=== PATIENT | male | born 1945 | race Caucasian/White ===

== ENCOUNTER 2021-10-26 20:26 | Inpatient (IN) ==
[2021-10-26 21:03] LABS: Basophils # 0.1 10*3/uL (0.0-0.2); Basophils % 0.4 % (0.0-0.8); Eosinophils # 0.1 10*3/uL (0.0-0.87); Eosinophils % 0.3 % (0.00-10.9); Hematocrit 38.3 VOL% (42.0-52.0); Hemoglobin 12.8 GM/DL (14.0-18.0); Immature Granulocytes % 0.4 %; Immature Granulocytes Absolute 0.07 #; Lymphocytes # 0.8 10*3/uL (1.4-4.0); Lymphocytes % 4.9 % (21.2-54.2); Mean Corpuscular HGB Conc 33.4 GM/DL (32-36); Mean Corpuscular Volume 91.4 FL (87-102); Mean Platelet Volume 10.6 FL (9.6-12.0); Monocytes % 5.4 % (1.7-12.7); Neutrophils % 88.6 % (38.7-73.9); Platelet Count 222 T/CUMM (130-400); Red Blood Count 4.19 MC/CUMM (3.8-5.5); Red Cell Distribution Width 13.1 % (9.3-17.3); White Blood Count 15.8 T/CUMM (4-12)
[2021-10-26 21:24] LABS: Elliptocytes Few; Hypochromia Slight; Lymphocytes 5 % (20-55); Platelet Estimate Adequate; Segmented Neutrophils 89 % (50-85); Total Cells Counted 100
[2021-10-26 21:26] LABS: Alanine Aminotransferase 29 U/L (16-61); Albumin 3.5 G/DL (3.4-5.0); Alkaline Phosphatase 56 U/L (45-117); Aspartate Amino Transferase 19 U/L (0-37); Bilirubin,Total < 0.39 MG/DL (0.20-1.00); Blood Urea Nitrogen 20 MG/DL (7-18); Calcium 8.6 MG/DL (8.5-10.1); Carbon Dioxide 23 MMOL/L (21-32); Estimated Glom Filtration Rate 109 ML/MIN; Glucose 189 MG/DL (74-106); Osmolality,Calculated 277.1 MOS/KG (273-304); Potassium 4.2 MMOL/L (3.5-5.1); Sodium 135 MMOL/L (136-145); Total Protein 7.3 G/DL (6.4-8.2)
[2021-10-26] MEDS ORDERED: SODIUM CHLORIDE 0.9% 1,000 ML IV STA (21:38)
[2021-10-26] MEDS ORDERED: SODIUM CHLORIDE 0.9% 3,000 ML IV STA (21:38)
[2021-10-26 22:11] LABS: Calcium Oxalate Crystals,Urine Occasional /HPF (Few); Glucose,Urine (UA) Negative (Negative); Hyaline Casts,Urine 2 /LPF (0-3); Ketones,Urine Negative (Negative); Mucus,Urine Few /LPF (Occasional); Protein,Urine Trace mg/dL (Negative); RBC,Urine 1 /HPF (0-4); Squamous Epithelial Cell,Urine Occasional /HPF (0-10); Urine Appearance Clear (Clear); Urine Color Yellow (Yellow); Urine Specific Gravity >= 1.030 (1.001-1.035); Urine pH 5.5 (4.5-8.0)
[2021-10-26 22:12] LABS: Bilirubin,Urine Negative (Negative); Blood, Urine Negative (Negative); Nitrite,Urine Negative (Negative); Urine Urobilinogen 0.2 eU/dL (<2.0)
[2021-10-26] MEDS ORDERED: PIPERACILLIN/TAZOBACTAM 3,375 MG in SODIUM CHLORIDE 0.9% 100 ML IV STA (22:19)
[2021-10-26] MEDS ORDERED: GLUCAGON 1 MG VIAL IM PRN (23:43)
[2021-10-26] MEDS ORDERED: ONDANSETRON 4 MG/2 ML VIAL IV PRN (23:43)
[2021-10-26] MEDS ORDERED: DEXTROSE 10% 250 ML BAG IV PRN (23:43)
[2021-10-27] MEDS: SODIUM CHLORIDE 0.9% 1,000 ML IV SCH ×2 (00:55→21:38)
[2021-10-27] MEDS: VANCOMYCIN INJ 1,500 MG in SODIUM CHLORIDE 0.9% 500 ML IV SCH ×2 (05:00→21:37)
[2021-10-27 07:07] LABS: Basophils # 0.1 10*3/uL (0.0-0.2); Basophils % 0.4 % (0.0-0.8); Eosinophils # 0.1 10*3/uL (0.0-0.87); Eosinophils % 0.8 % (0.00-10.9); Hematocrit 35.8 VOL% (42.0-52.0); Hemoglobin 11.9 GM/DL (14.0-18.0); Immature Granulocytes % 0.6 %; Lymphocytes # 1.4 10*3/uL (1.4-4.0); Lymphocytes % 8.4 % (21.2-54.2); Mean Corpuscular HGB Conc 33.2 GM/DL (32-36); Mean Corpuscular Volume 90.2 FL (87-102); Mean Platelet Volume 10.7 FL (9.6-12.0); Monocytes % 5.8 % (1.7-12.7); Platelet Count 213 T/CUMM (130-400); Red Blood Count 3.97 MC/CUMM (3.8-5.5); Red Cell Distribution Width 13.1 % (9.3-17.3)
[2021-10-27 07:17] LABS: PT Patient Result 11.1 SECS (10.5-12.0); Partial Thromboplastin Time 27.8 SECS (23.8-32.1)
[2021-10-27 07:31] LABS: Calcium 8.5 MG/DL (8.5-10.1); Osmolality,Calculated 276.7 MOS/KG (273-304); Potassium 3.7 MMOL/L (3.5-5.1)
[2021-10-27 07:39] LABS: Band Neutrophils 6 % (0-10); Eosinophils 4 % (0-10); Lymphocytes 11 % (20-55); Segmented Neutrophils 74 % (50-85); Total Cells Counted 100
[2021-10-27 07:40] LABS: Hypochromia Slight; Microcytosis Slight; Platelet Estimate Normal
[2021-10-27] MEDS: INSULIN REGULAR 100 UNIT/ML SUBCUT SCH ×4 (08:43→21:42)
[2021-10-27] MEDS: PANTOPRAZOLE 40 MG TABLET PO SCH (08:44)
[2021-10-27] MEDS: PIPERACILLIN/TAZOBACTAM 3,375 MG in SODIUM CHLORIDE 0.9% 100 ML IV SCH ×2 (08:44→16:40)
[2021-10-27] MEDS: DOCUSATE SODIUM 100 MG CAPSULE PO SCH ×2 (08:45→21:36)
[2021-10-27] MEDS ORDERED: MAGNESIUM SULF RIDER 2 GM/50 ML PREMIX IV ONE (13:00)
[2021-10-27] MEDS: CITALOPRAM 20 MG TABLET PO SCH (14:26)
[2021-10-27] MEDS: ASCORBIC ACID 500 MG TABLET PO SCH (21:36)
[2021-10-27] MEDS: ACETAMINOPHEN 325 MG TABLET PO SCH (21:36)
[2021-10-27] MEDS: MELATONIN 3 MG TABLET PO PRN (21:37)
[2021-10-27] MEDS: amLODIPine 10 MG TABLET PO SCH (21:45)
[2021-10-28] MEDS: PIPERACILLIN/TAZOBACTAM 3,375 MG in SODIUM CHLORIDE 0.9% 100 ML IV SCH ×3 (00:23→15:24)
[2021-10-28] MEDS: SODIUM CHLORIDE 0.9% 1,000 ML IV SCH ×2 (05:49→14:02)
[2021-10-28 05:56] LABS: Basophils # 0.1 10*3/uL (0.0-0.2); Basophils % 0.6 % (0.0-0.8); Eosinophils # 0.4 10*3/uL (0.0-0.87); Eosinophils % 4.9 % (0.00-10.9); Hematocrit 33.8 VOL% (42.0-52.0); Hemoglobin 11.2 GM/DL (14.0-18.0); Immature Granulocytes % 0.4 %; Immature Granulocytes Absolute 0.03 #; Lymphocytes # 1.3 10*3/uL (1.4-4.0); Lymphocytes % 16.2 % (21.2-54.2); Mean Corpuscular HGB Conc 33.1 GM/DL (32-36); Mean Corpuscular Volume 91.6 FL (87-102); Mean Platelet Volume 10.8 FL (9.6-12.0); Monocytes % 10.1 % (1.7-12.7); Neutrophils % 67.8 % (38.7-73.9); Platelet Count 185 T/CUMM (130-400); Red Blood Count 3.69 MC/CUMM (3.8-5.5); Red Cell Distribution Width 13.1 % (9.3-17.3); White Blood Count 8.1 T/CUMM (4-12)
[2021-10-28 06:11] LABS: Calcium 8.3 MG/DL (8.5-10.1); Osmolality,Calculated 281.3 MOS/KG (273-304); Potassium 3.8 MMOL/L (3.5-5.1)
[2021-10-28] MEDS ORDERED: lisinopriL 20 MG TABLET PO SCH (09:00)
[2021-10-28] MEDS: allopurinoL 100 MG TABLET PO SCH (09:02)
[2021-10-28] MEDS: PANTOPRAZOLE 40 MG TABLET PO SCH (09:03)
[2021-10-28] MEDS: DOCUSATE SODIUM 100 MG CAPSULE PO SCH ×2 (09:03→21:24)
[2021-10-28] MEDS: CHOLECALCIFEROL 1,000 UNIT TABLET PO SCH (09:03)
[2021-10-28] MEDS: CITALOPRAM 20 MG TABLET PO SCH (09:04)
[2021-10-28] MEDS: INSULIN REGULAR 100 UNIT/ML SUBCUT SCH ×4 (09:06→21:24)
[2021-10-28] MEDS: guaiFENesin/DM ER 600-30 MG TABLET PO SCH ×2 (11:01→21:23)
[2021-10-28] MEDS: BENZONATATE 100 MG CAPSULE PO SCH ×2 (15:24→21:23)
[2021-10-28] MEDS: AZITHROMYCIN 250 MG TABLET PO SCH (15:24)
[2021-10-28] MEDS: VANCOMYCIN INJ 1,500 MG in SODIUM CHLORIDE 0.9% 500 ML IV SCH (15:25)
[2021-10-28] MEDS ORDERED: DOXYCYCLINE HYCLATE 100 MG CAPSULE PO SCH (21:00)
[2021-10-28] MEDS: MELATONIN 3 MG TABLET PO PRN (21:23)
[2021-10-28] MEDS: amLODIPine 10 MG TABLET PO SCH (21:23)
[2021-10-28] MEDS: ACETAMINOPHEN 325 MG TABLET PO SCH (21:23)
[2021-10-28] MEDS: ASCORBIC ACID 500 MG TABLET PO SCH (21:23)
[2021-10-29] MEDS: PIPERACILLIN/TAZOBACTAM 3,375 MG in SODIUM CHLORIDE 0.9% 100 ML IV SCH ×4 (00:30→23:56)
[2021-10-29 05:23] LABS: Basophils # 0.1 10*3/uL (0.0-0.2); Basophils % 0.7 % (0.0-0.8); Eosinophils # 0.4 10*3/uL (0.0-0.87); Eosinophils % 5.1 % (0.00-10.9); Hematocrit 32.6 VOL% (42.0-52.0); Hemoglobin 11.1 GM/DL (14.0-18.0); Immature Granulocytes % 0.4 %; Immature Granulocytes Absolute 0.03 #; Lymphocytes # 1.5 10*3/uL (1.4-4.0); Lymphocytes % 19.2 % (21.2-54.2); Mean Corpuscular Volume 90.8 FL (87-102); Mean Platelet Volume 10.9 FL (9.6-12.0); Monocytes % 9.1 % (1.7-12.7); Neutrophils % 65.5 % (38.7-73.9); Platelet Count 189 T/CUMM (130-400); Red Blood Count 3.59 MC/CUMM (3.8-5.5); Red Cell Distribution Width 12.9 % (9.3-17.3); White Blood Count 7.6 T/CUMM (4-12)
[2021-10-29 05:49] LABS: Calcium 7.9 MG/DL (8.5-10.1); Osmolality,Calculated 273.8 MOS/KG (273-304)
[2021-10-29] MEDS: INSULIN REGULAR 100 UNIT/ML SUBCUT SCH ×4 (09:54→22:14)
[2021-10-29] MEDS: CHOLECALCIFEROL 1,000 UNIT TABLET PO SCH (09:55)
[2021-10-29] MEDS: guaiFENesin/DM ER 600-30 MG TABLET PO SCH ×2 (09:55→22:13)
[2021-10-29] MEDS: PANTOPRAZOLE 40 MG TABLET PO SCH (09:55)
[2021-10-29] MEDS: DOCUSATE SODIUM 100 MG CAPSULE PO SCH ×2 (09:55→22:13)
[2021-10-29] MEDS: BENZONATATE 100 MG CAPSULE PO SCH ×3 (09:55→22:13)
[2021-10-29] MEDS: AZITHROMYCIN 250 MG TABLET PO SCH (09:56)
[2021-10-29] MEDS: allopurinoL 100 MG TABLET PO SCH (09:56)
[2021-10-29] MEDS: CITALOPRAM 20 MG TABLET PO SCH (09:56)
[2021-10-29] MEDS: VANCOMYCIN INJ 1,500 MG in SODIUM CHLORIDE 0.9% 500 ML IV SCH (11:55)
[2021-10-29] MEDS: SODIUM CHLORIDE 0.9% 1,000 ML IV SCH (18:58)
[2021-10-29] MEDS: ASCORBIC ACID 500 MG TABLET PO SCH (22:13)
[2021-10-29] MEDS: amLODIPine 10 MG TABLET PO SCH (22:13)
[2021-10-29] MEDS: ACETAMINOPHEN 325 MG TABLET PO SCH (22:13)
[2021-10-29] MEDS: MELATONIN 3 MG TABLET PO PRN (23:56)
[2021-10-30] MEDS: VANCOMYCIN INJ 1,500 MG in SODIUM CHLORIDE 0.9% 500 ML IV SCH (03:52)
[2021-10-30 05:46] LABS: Basophils # 0.1 10*3/uL (0.0-0.2); Basophils % 0.7 % (0.0-0.8); Eosinophils # 0.4 10*3/uL (0.0-0.87); Eosinophils % 5.7 % (0.00-10.9); Hematocrit 35.9 VOL% (42.0-52.0); Hemoglobin 12.2 GM/DL (14.0-18.0); Immature Granulocytes % 0.3 %; Immature Granulocytes Absolute 0.02 #; Lymphocytes # 1.5 10*3/uL (1.4-4.0); Lymphocytes % 20.7 % (21.2-54.2); Mean Corpuscular Volume 89.5 FL (87-102); Mean Platelet Volume 10.6 FL (9.6-12.0); Monocytes % 10.8 % (1.7-12.7); Neutrophils % 61.8 % (38.7-73.9); Platelet Count 224 T/CUMM (130-400); Red Blood Count 4.01 MC/CUMM (3.8-5.5); Red Cell Distribution Width 12.8 % (9.3-17.3); White Blood Count 7.2 T/CUMM (4-12)
[2021-10-30 06:14] LABS: Calcium 8.4 MG/DL (8.5-10.1); Osmolality,Calculated 276.5 MOS/KG (273-304); Potassium 3.9 MMOL/L (3.5-5.1)
[2021-10-30] MEDS: INSULIN REGULAR 100 UNIT/ML SUBCUT SCH ×4 (07:33→21:22)
[2021-10-30] MEDS: BENZONATATE 100 MG CAPSULE PO SCH ×3 (08:44→21:21)
[2021-10-30] MEDS: guaiFENesin/DM ER 600-30 MG TABLET PO SCH ×2 (08:44→21:21)
[2021-10-30] MEDS: allopurinoL 100 MG TABLET PO SCH (08:44)
[2021-10-30] MEDS: CITALOPRAM 20 MG TABLET PO SCH (08:45)
[2021-10-30] MEDS: CHOLECALCIFEROL 1,000 UNIT TABLET PO SCH (08:45)
[2021-10-30] MEDS: AZITHROMYCIN 250 MG TABLET PO SCH (08:45)
[2021-10-30] MEDS: PANTOPRAZOLE 40 MG TABLET PO SCH (08:45)
[2021-10-30] MEDS: DOCUSATE SODIUM 100 MG CAPSULE PO SCH ×2 (08:46→21:21)
[2021-10-30] MEDS: PIPERACILLIN/TAZOBACTAM 3,375 MG in SODIUM CHLORIDE 0.9% 100 ML IV SCH ×2 (08:46→15:33)
[2021-10-30] MEDS: MELATONIN 3 MG TABLET PO PRN (21:21)
[2021-10-30] MEDS: amLODIPine 10 MG TABLET PO SCH (21:21)
[2021-10-30] MEDS: ASCORBIC ACID 500 MG TABLET PO SCH (21:21)
[2021-10-30] MEDS: ACETAMINOPHEN 325 MG TABLET PO SCH (21:21)
[2021-10-31] MEDS: PIPERACILLIN/TAZOBACTAM 3,375 MG in SODIUM CHLORIDE 0.9% 100 ML IV SCH ×2 (00:57→09:23)
[2021-10-31 06:13] LABS: Basophils # 0.1 10*3/uL (0.0-0.2); Basophils % 1.3 % (0.0-0.8); Eosinophils # 0.4 10*3/uL (0.0-0.87); Eosinophils % 6.4 % (0.00-10.9); Hematocrit 36.8 VOL% (42.0-52.0); Hemoglobin 12.4 GM/DL (14.0-18.0); Immature Granulocytes % 0.5 %; Immature Granulocytes Absolute 0.03 #; Lymphocytes # 1.8 10*3/uL (1.4-4.0); Lymphocytes % 27.5 % (21.2-54.2); Mean Corpuscular HGB Conc 33.7 GM/DL (32-36); Mean Platelet Volume 10.1 FL (9.6-12.0); Monocytes % 11.4 % (1.7-12.7); Neutrophils % 52.9 % (38.7-73.9); Platelet Count 247 T/CUMM (130-400); Red Blood Count 4.09 MC/CUMM (3.8-5.5); Red Cell Distribution Width 12.9 % (9.3-17.3); White Blood Count 6.4 T/CUMM (4-12)
[2021-10-31 06:31] LABS: Calcium 8.9 MG/DL (8.5-10.1); Osmolality,Calculated 282.3 MOS/KG (273-304); Potassium 3.9 MMOL/L (3.5-5.1)
[2021-10-31] MEDS: INSULIN REGULAR 100 UNIT/ML SUBCUT SCH ×4 (07:30→22:16)
[2021-10-31] MEDS: guaiFENesin/DM ER 600-30 MG TABLET PO SCH ×2 (09:20→20:38)
[2021-10-31] MEDS: allopurinoL 100 MG TABLET PO SCH (09:20)
[2021-10-31] MEDS: DOCUSATE SODIUM 100 MG CAPSULE PO SCH ×2 (09:21→20:39)
[2021-10-31] MEDS: ACETAMINOPHEN 325 MG TABLET PO PRN (09:21)
[2021-10-31] MEDS: BENZONATATE 100 MG CAPSULE PO SCH ×3 (09:22→20:38)
[2021-10-31] MEDS: CHOLECALCIFEROL 1,000 UNIT TABLET PO SCH (09:22)
[2021-10-31] MEDS: AZITHROMYCIN 250 MG TABLET PO SCH (09:22)
[2021-10-31] MEDS: CITALOPRAM 20 MG TABLET PO SCH (09:22)
[2021-10-31] MEDS: PANTOPRAZOLE 40 MG TABLET PO SCH (09:22)
[2021-10-31] MEDS: cefTRIAXone 1,000 MG in SODIUM CHLORIDE 0.9% 100 ML IV SCH (17:10)
[2021-10-31] MEDS: ACETAMINOPHEN 325 MG TABLET PO SCH (20:38)
[2021-10-31] MEDS: MELATONIN 3 MG TABLET PO PRN (20:38)
[2021-10-31] MEDS: ASCORBIC ACID 500 MG TABLET PO SCH (20:38)
[2021-10-31] MEDS: amLODIPine 10 MG TABLET PO SCH (20:39)
[2021-11-01 05:55] LABS: Calcium 8.6 MG/DL (8.5-10.1); Osmolality,Calculated 276.7 MOS/KG (273-304); Potassium 3.9 MMOL/L (3.5-5.1)
[2021-11-01 06:38] LABS: Basophils # 0.1 10*3/uL (0.0-0.2); Basophils % 0.8 % (0.0-0.8); Eosinophils # 0.3 10*3/uL (0.0-0.87); Eosinophils % 4.1 % (0.00-10.9); Hematocrit 36.9 VOL% (42.0-52.0); Hemoglobin 12.3 GM/DL (14.0-18.0); Immature Granulocytes % 0.6 %; Immature Granulocytes Absolute 0.05 #; Lymphocytes # 1.8 10*3/uL (1.4-4.0); Mean Corpuscular HGB Conc 33.3 GM/DL (32-36); Mean Corpuscular Volume 90.4 FL (87-102); Mean Platelet Volume 9.8 FL (9.6-12.0); Monocytes % 8.9 % (1.7-12.7); Neutrophils % 64.6 % (38.7-73.9); Platelet Count 247 T/CUMM (130-400); Red Blood Count 4.08 MC/CUMM (3.8-5.5); Red Cell Distribution Width 13.1 % (9.3-17.3); White Blood Count 8.3 T/CUMM (4-12)
[2021-11-01] MEDS: AZITHROMYCIN 250 MG TABLET PO SCH (09:04)
[2021-11-01] MEDS: CITALOPRAM 20 MG TABLET PO SCH (09:04)
[2021-11-01] MEDS: PANTOPRAZOLE 40 MG TABLET PO SCH (09:04)
[2021-11-01] MEDS: CHOLECALCIFEROL 1,000 UNIT TABLET PO SCH (09:05)
[2021-11-01] MEDS: BENZONATATE 100 MG CAPSULE PO SCH ×3 (09:05→21:41)
[2021-11-01] MEDS: DOCUSATE SODIUM 100 MG CAPSULE PO SCH ×2 (09:05→21:41)
[2021-11-01] MEDS: allopurinoL 100 MG TABLET PO SCH (09:05)
[2021-11-01] MEDS: guaiFENesin/DM ER 600-30 MG TABLET PO SCH ×2 (09:09→21:41)
[2021-11-01] MEDS: INSULIN REGULAR 100 UNIT/ML SUBCUT SCH ×3 (12:26→21:42)
[2021-11-01] MEDS: cefTRIAXone 1,000 MG in SODIUM CHLORIDE 0.9% 100 ML IV SCH (17:50)
[2021-11-01] MEDS: amLODIPine 10 MG TABLET PO SCH (21:41)
[2021-11-01] MEDS: MELATONIN 3 MG TABLET PO PRN (21:41)
[2021-11-01] MEDS: ASCORBIC ACID 500 MG TABLET PO SCH (21:41)
[2021-11-01] MEDS: ACETAMINOPHEN 325 MG TABLET PO SCH (21:41)
[2021-11-02 05:19] LABS: Basophils # 0.1 10*3/uL (0.0-0.2); Basophils % 0.8 % (0.0-0.8); Eosinophils # 0.3 10*3/uL (0.0-0.87); Eosinophils % 4.4 % (0.00-10.9); Hematocrit 37.8 VOL% (42.0-52.0); Hemoglobin 12.7 GM/DL (14.0-18.0); Immature Granulocytes % 0.8 %; Immature Granulocytes Absolute 0.06 #; Lymphocytes # 1.6 10*3/uL (1.4-4.0); Lymphocytes % 20.4 % (21.2-54.2); Mean Corpuscular HGB Conc 33.6 GM/DL (32-36); Mean Corpuscular Volume 90.4 FL (87-102); Mean Platelet Volume 9.8 FL (9.6-12.0); Monocytes % 11.9 % (1.7-12.7); Neutrophils % 61.7 % (38.7-73.9); Platelet Count 251 T/CUMM (130-400); Red Blood Count 4.18 MC/CUMM (3.8-5.5); Red Cell Distribution Width 13.1 % (9.3-17.3); White Blood Count 7.8 T/CUMM (4-12)
[2021-11-02 06:16] LABS: Calcium 8.6 MG/DL (8.5-10.1); Osmolality,Calculated 276.7 MOS/KG (273-304); Potassium 4.1 MMOL/L (3.5-5.1)
[2021-11-02] MEDS: INSULIN REGULAR 100 UNIT/ML SUBCUT SCH ×4 (08:53→19:59)
[2021-11-02] MEDS: CITALOPRAM 20 MG TABLET PO SCH (08:56)
[2021-11-02] MEDS: DOCUSATE SODIUM 100 MG CAPSULE PO SCH ×2 (08:56→19:59)
[2021-11-02] MEDS: guaiFENesin/DM ER 600-30 MG TABLET PO SCH ×2 (08:58→19:59)
[2021-11-02] MEDS: BENZONATATE 100 MG CAPSULE PO SCH ×3 (08:58→19:59)
[2021-11-02] MEDS: CHOLECALCIFEROL 1,000 UNIT TABLET PO SCH (08:58)
[2021-11-02] MEDS: PANTOPRAZOLE 40 MG TABLET PO SCH (08:58)
[2021-11-02] MEDS: allopurinoL 100 MG TABLET PO SCH (09:02)
[2021-11-02] MEDS: cefTRIAXone 1,000 MG in SODIUM CHLORIDE 0.9% 100 ML IV SCH (17:40)
[2021-11-02] MEDS: amLODIPine 10 MG TABLET PO SCH (19:59)
[2021-11-02] MEDS: ASCORBIC ACID 500 MG TABLET PO SCH (19:59)
[2021-11-02] MEDS: ACETAMINOPHEN 325 MG TABLET PO SCH (19:59)
[2021-11-02] MEDS: MELATONIN 3 MG TABLET PO PRN (20:01)
[2021-11-03] MEDS: INSULIN REGULAR 100 UNIT/ML SUBCUT SCH ×4 (07:30→22:06)
[2021-11-03] MEDS: CITALOPRAM 20 MG TABLET PO SCH (09:31)
[2021-11-03] MEDS: DOCUSATE SODIUM 100 MG CAPSULE PO SCH ×2 (09:31→22:04)
[2021-11-03] MEDS: BENZONATATE 100 MG CAPSULE PO SCH ×3 (09:32→22:05)
[2021-11-03] MEDS: guaiFENesin/DM ER 600-30 MG TABLET PO SCH ×2 (09:32→22:06)
[2021-11-03] MEDS: PANTOPRAZOLE 40 MG TABLET PO SCH (09:32)
[2021-11-03] MEDS: allopurinoL 100 MG TABLET PO SCH (09:32)
[2021-11-03] MEDS: CHOLECALCIFEROL 1,000 UNIT TABLET PO SCH (09:32)
[2021-11-03] MEDS: ACETAMINOPHEN 325 MG TABLET PO PRN (13:19)
[2021-11-03] MEDS: cefTRIAXone 1,000 MG in SODIUM CHLORIDE 0.9% 100 ML IV SCH (16:20)
[2021-11-03] MEDS: ASCORBIC ACID 500 MG TABLET PO SCH (22:04)
[2021-11-03] MEDS: ACETAMINOPHEN 325 MG TABLET PO SCH (22:05)
[2021-11-03] MEDS: amLODIPine 10 MG TABLET PO SCH (22:05)
[2021-11-03] MEDS: MELATONIN 3 MG TABLET PO PRN (22:07)
[2021-11-04 05:57] LABS: Basophils # 0.1 10*3/uL (0.0-0.2); Basophils % 1.2 % (0.0-0.8); Eosinophils # 0.3 10*3/uL (0.0-0.87); Eosinophils % 4.6 % (0.00-10.9); Hematocrit 36.3 VOL% (42.0-52.0); Hemoglobin 12.2 GM/DL (14.0-18.0); Immature Granulocytes % 0.6 %; Immature Granulocytes Absolute 0.04 #; Lymphocytes # 1.8 10*3/uL (1.4-4.0); Lymphocytes % 26.7 % (21.2-54.2); Mean Corpuscular HGB Conc 33.6 GM/DL (32-36); Mean Corpuscular Volume 91.7 FL (87-102); Mean Platelet Volume 9.8 FL (9.6-12.0); Neutrophils % 56.9 % (38.7-73.9); Platelet Count 259 T/CUMM (130-400); Red Blood Count 3.96 MC/CUMM (3.8-5.5); Red Cell Distribution Width 13.1 % (9.3-17.3); White Blood Count 6.7 T/CUMM (4-12)
[2021-11-04 06:11] LABS: Calcium 9.3 MG/DL (8.5-10.1); Osmolality,Calculated 277.7 MOS/KG (273-304); Potassium 4.2 MMOL/L (3.5-5.1)
[2021-11-04] MEDS: INSULIN REGULAR 100 UNIT/ML SUBCUT SCH ×4 (07:51→22:16)
[2021-11-04] MEDS: CITALOPRAM 20 MG TABLET PO SCH (09:25)
[2021-11-04] MEDS: DOCUSATE SODIUM 100 MG CAPSULE PO SCH ×2 (09:25→22:19)
[2021-11-04] MEDS: guaiFENesin/DM ER 600-30 MG TABLET PO SCH ×2 (09:25→22:18)
[2021-11-04] MEDS: BENZONATATE 100 MG CAPSULE PO SCH ×3 (09:25→22:17)
[2021-11-04] MEDS: PANTOPRAZOLE 40 MG TABLET PO SCH (09:25)
[2021-11-04] MEDS: allopurinoL 100 MG TABLET PO SCH (09:25)
[2021-11-04] MEDS: CHOLECALCIFEROL 1,000 UNIT TABLET PO SCH (09:25)
[2021-11-04] MEDS: ACETAMINOPHEN 325 MG TABLET PO SCH (22:17)
[2021-11-04] MEDS: ASCORBIC ACID 500 MG TABLET PO SCH (22:18)
[2021-11-04] MEDS: MELATONIN 3 MG TABLET PO PRN (22:18)
[2021-11-04] MEDS: amLODIPine 10 MG TABLET PO SCH (22:18)
[2021-11-05] MEDS: CITALOPRAM 20 MG TABLET PO SCH (09:51)
[2021-11-05] MEDS: guaiFENesin/DM ER 600-30 MG TABLET PO SCH ×2 (09:51→21:08)
[2021-11-05] MEDS: DOCUSATE SODIUM 100 MG CAPSULE PO SCH ×2 (09:51→21:10)
[2021-11-05] MEDS: BENZONATATE 100 MG CAPSULE PO SCH ×3 (09:51→21:09)
[2021-11-05] MEDS: CHOLECALCIFEROL 1,000 UNIT TABLET PO SCH (09:51)
[2021-11-05] MEDS: PANTOPRAZOLE 40 MG TABLET PO SCH (09:51)
[2021-11-05] MEDS: allopurinoL 100 MG TABLET PO SCH (09:51)
[2021-11-05] MEDS: INSULIN REGULAR 100 UNIT/ML SUBCUT SCH ×4 (09:56→21:12)
[2021-11-05] MEDS: MELATONIN 3 MG TABLET PO PRN (21:08)
[2021-11-05] MEDS: ASCORBIC ACID 500 MG TABLET PO SCH (21:09)
[2021-11-05] MEDS: amLODIPine 10 MG TABLET PO SCH (21:09)
[2021-11-05] MEDS: ACETAMINOPHEN 325 MG TABLET PO SCH (21:10)
[2021-11-06] MEDS: INSULIN REGULAR 100 UNIT/ML SUBCUT SCH ×4 (07:30→20:35)
[2021-11-06] MEDS: allopurinoL 100 MG TABLET PO SCH (08:37)
[2021-11-06] MEDS: BENZONATATE 100 MG CAPSULE PO SCH ×3 (08:37→20:38)
[2021-11-06] MEDS: DOCUSATE SODIUM 100 MG CAPSULE PO SCH ×2 (08:37→20:26)
[2021-11-06] MEDS: guaiFENesin/DM ER 600-30 MG TABLET PO SCH ×2 (08:37→20:38)
[2021-11-06] MEDS: CITALOPRAM 20 MG TABLET PO SCH (08:37)
[2021-11-06] MEDS: PANTOPRAZOLE 40 MG TABLET PO SCH (08:37)
[2021-11-06] MEDS: CHOLECALCIFEROL 1,000 UNIT TABLET PO SCH (08:37)
[2021-11-06] MEDS: ASCORBIC ACID 500 MG TABLET PO SCH (20:26)
[2021-11-06] MEDS: amLODIPine 10 MG TABLET PO SCH (20:27)
[2021-11-06] MEDS: ACETAMINOPHEN 325 MG TABLET PO PRN (20:27)
[2021-11-06] MEDS: MELATONIN 3 MG TABLET PO PRN (20:38)
[2021-11-06] MEDS: ACETAMINOPHEN 325 MG TABLET PO SCH ×2 (20:40→22:36)
[2021-11-07] MEDS: INSULIN REGULAR 100 UNIT/ML SUBCUT SCH (07:37)
[2021-11-07 07:39] VITALS: BP 153/61
[2021-11-07] MEDS: DOCUSATE SODIUM 100 MG CAPSULE PO SCH (08:50)
[2021-11-07] MEDS: CITALOPRAM 20 MG TABLET PO SCH (08:50)
[2021-11-07] MEDS: CHOLECALCIFEROL 1,000 UNIT TABLET PO SCH (08:51)
[2021-11-07] MEDS: BENZONATATE 100 MG CAPSULE PO SCH (08:51)
[2021-11-07] MEDS: PANTOPRAZOLE 40 MG TABLET PO SCH (08:51)
[2021-11-07] MEDS: guaiFENesin/DM ER 600-30 MG TABLET PO SCH (08:51)
[2021-11-07] MEDS: allopurinoL 100 MG TABLET PO SCH (08:52)
== END 2021-11-07 10:55 | DRG 372 ==
LOC: N.ED 20:26 → N.EDINP 23:43 → SUATTDRO 23:43 → N.EDINP 10-27 02:00 → N.5E 10-27 04:04
PROVIDERS: ADMIT Hospitalist; ATTEND Hospitalist